=== PATIENT | female | born 1990 | race American Indian/Alaskan Native ===

== ENCOUNTER 2018-10-21 10:31 | Emergency (ER) | payer OTHER ==
[2018-10-21 10:48] VITALS: BP 126/77
--- NOTE | 2018-10-21 11:40 | XRay Report ---
Right foot 3 views: X. History: Toe injury. Findings: No fracture or dislocation no periosteal reaction or soft tissue calcification. Articular surfaces appears unremarkable. Impression: No evidence of acute fracture.
--- NOTE | 2018-10-21 12:41 | Emergency Department Report ---
ED Laceration HPI - HPI Chief Complaint: Wound/Laceration Stated Complaint: R FOOT INJURY Time Seen by Provider: 10/21/18 11:45 Occurred When: Today Location: Lower Extremity (at the plantar surfaceof the right great toe) Severity: moderate Tetanus Status: Up to Date Laceration Symptoms: Yes Pain, No Foreign Body Sensation, No Numbness, No Weak ness Other History: Patient was Leaving the elevatorpiece of metal that cut her right great toe. Patient had on sandals at the time. ED Review of Systems ROS: Stated complaint: R FOOT INJURY Other details as noted in HPI Comment: All other systems reviewed and negative ED Past Medical Hx - Past Medical History Previous Medical History?: No - Surgical History Additional Surgical History: cyst removed from neck - Social History Smoking Status: Never Smoker Substance Use Type: None - Medications Home Medications: Home Medications Medication Instructions Recorded Confirmed Last Taken Type Ibuprofen [Motrin 800 MG tab] 800 mg PO Q8HR PRN #10 tablet 10/21/18 Unknown Rx traMADol [Ultram] 50 mg PO Q6HR PRN #12 tablet 10/21/18 Unknown Rx Laceration Physical Exam - Exam General: Vital signs noted. No distress. Alert and acting appropriately. Wound Length (cm): 2 Laceration Location: Lower Extremity (on the plantar surface of the patient's right great toe) Laceration Exam: Yes Normal Distal CMS, No Foreign Body, No Exposed Tendon, Vessel, or Nerve, No Tendon Injury ED Course Vital Signs 10/21/18 10:44 Temperature 98.1 F Pulse Rate 80 Respiratory 16 Rate Blood Pressure 126/77 [Left] O2 Sat by Pulse 100 Oximetry - Laceration /Wound Repair Right Plantar Toe Wound Location: lower extremity Wound Length (cm): 2 Wound's Depth, Shape: superficial Wound Explored: clean Irrigated w/ Saline (ccs): 200 Betadine Prep?: Yes Anesthesia: 0.5% Sensorcaine Volume Anesthetic (ccs): 10 (digital block was performed by me which did give good anesthesia) Wound Repaired With: sutures Suture Size/Type: 4:0, nylon Number of Sutures: 7 Layer Closure?: No Sterile Dressing Applied?: Yes Progress: Patient tolerated procedure well ED Medical Decision Making - Medical Decision Making Patient is a 28-year-old [place] female who suffered a laceration to the right great toe on the plantar surface. This was sutured by me. Patient tolerated procedure well. Patient was given suture instructions and will have her sutures removed in 7 days. Critical care attestation.: If time is entered above; I have spent that time in minutes in the direct care of this critically ill patient, excluding procedure time. ED Disposition Clinical Impression: Laceration Disposition: DC-01 TO HOME OR SELFCARE Is pt being admited?: No Does the pt Need Aspirin: No Condition: Stable Instructions: Suture Care (ED), Laceration (ED) Referrals: ELÍAS KOENIG [Other] - 7-10 days (PLEASE FOLLOW UP FOR SUTURE REMOVAL ) Forms: Work/School Release Form(ED) Time of Disposition: 12:44
== END 2018-10-21 12:56 | disposition home or self-care (01) ==
LOC: ED 10:31
DX: S91.111A Laceration without foreign body of right great toe without damage to nail, initial encounter (principal); W26.8XXA Contact with other sharp object(s), not elsewhere classified, initial encounter; Y93.01 Activity, walking, marching and hiking; Y92.89 Other specified places as the place of occurrence of the external cause; Y99.8 Other external cause status
CPT/HCPCS: 99283

== ENCOUNTER 2018-12-31 19:18 | Emergency (ER) | payer OTHER ==
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
--- NOTE | 2018-12-31 20:16 | XRay Report ---
Left foot 3 views INDICATION: Left foot pain following injury IMPRESSION: No fracture or subluxation identified. Signer Name: Puma Jensen MD Signed: 12/31/2018 8:12 PM Workstation Name: [id number]
--- NOTE | 2018-12-31 20:17 | XRay Report ---
Cervical spine complete 5 views INDICATION: Cervical spine pain following injury IMPRESSION: No fracture or subluxation of the cervical spine identified. Signer Name: Puma Jensen MD Signed: 12/31/2018 8:13 PM Workstation Name: [id number]
--- NOTE | 2018-12-31 20:18 | XRay Report ---
Lumbar spine 2 views INDICATION: Low back pain following injury IMPRESSION: No fracture or subluxation of the lumbar spine identified. Mild L5-S1 facet arthropathy. Signer Name: Puma Jensen MD Signed: 12/31/2018 8:14 PM Workstation Name: [id number]
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
[2019-01-01 00:09] VITALS: BP 118/56
== END 2019-01-01 00:09 | disposition home or self-care (01) ==
LOC: ED 19:18
DX: M54.2 Cervicalgia (principal); M79.672 Pain in left foot; X58.XXXA Exposure to other specified factors, initial encounter; Y93.89 Activity, other specified; Y92.89 Other specified places as the place of occurrence of the external cause; Y99.8 Other external cause status
CPT/HCPCS: 72040; 72100; 99283